=== PATIENT | female | born 1960 | race Two or more races ===

== ENCOUNTER 2019-04-16 19:44 | Emergency (ER) | payer OTHER ==
[~2019-04-16] VITALS: Ht 165.1 cm; Wt 81.6 kg
--- NOTE | 2019-04-16 20:02 | NUR ---
ED Nurse Note: pt presents to ED c/o productive cough and SOB x 2 weeks. pt states that she took amoxicillin she found at home, ASA and robitussin without relief of symptoms. pt also c/o LOERA and L ear px that started 2 days ago. pt denies getting a flu shot this year. she also has back and chest px that is exacerbated by coughing
[2019-04-16 20:04] VITALS: BP 148/68
--- NOTE | 2019-04-16 20:43 | Diagnostic Imaging Report ---
EXAM: XR Chest, 1 View CLINICAL HISTORY: PAIN TECHNIQUE: Frontal view of the chest. COMPARISON: No relevant prior studies available. FINDINGS: Lungs: Unremarkable. No consolidation. Pleural space: No pleural effusion. No pneumothorax. Heart: Unremarkable. No cardiomegaly. IMPRESSION: No acute cardiopulmonary abnormality.
[2019-04-16] MEDS ORDERED: Albuterol ud Inhalation HHN ONE (20:45)
--- NOTE | 2019-04-16 20:55 | NUR ---
ED Nurse Note: pt receiving breathing treatment
[2019-04-16] MEDS ORDERED: Oxymetazoline 0.05% Na Spray 30ml NASAL ONE (21:00)
--- NOTE | 2019-04-16 21:05 | Emergency Room Report ---
History of Present Illness General Chief Complaint: Flu Like Symptoms Present Illness HPI 58 YO female presents to the ED c/o productive cough, sneezing, nasal congestion and frontal sinus LOERA x 2 weeks. Pt. has been taking Robitussin with no relief. Pt. is a current smoker with a hx of asthma in the past. She denies using an inhaler and states she has an old one somewhere. She denies fevers or chills. She reports she did not receive this years flu vaccination. She reports hx of environmental allergies and takes Zyrtec intermittently PRN. Denies sudden onset of her LOERA. She denies neck pain or stiffness. She reports left sided ear pain and sensation of something being in her ear and has been using q- tips with no relief. She reports puffy watery eyes. She reports having wheezing for several days. She also reports persistent coughing and pain throughout the chest area during episodes of coughing. Denies ST. She denies palpitations or dizziness. She reports pmhx of HTN. Pt. denies cardiac hx or hx of immune compromise. Pt. and pt. daughter demonstrate concern for AK as pt. just had one, and pt,'s father passed from [place]. Pt. aslo c/o low back pain and frequent UTI's. (Fannie Garces) Allergies: Coded Allergies: Dust (Verified Allergy, Unknown, 04/16/19) Uncoded Allergies: CATS (Allergy, Unknown, 04/16/19) Patient History Past Medical History: see triage record Past Surgical History: none Social History: Reports: smoking Last Menstrual Period: na Now: No Reviewed Nursing Documentation: PMH: Agreed; PSxH: Agreed (Fannie Garces) Nursing Documentation-PMH Hx Hypertension: Yes (Fannie Garces) Review of Systems All Other Systems: negative except mentioned in HPI (Fannie Garces) Physical Exam Vital Signs Date Time Temp Pulse Resp B/P (MAP) Pulse Ox O2 Delivery O2 Flow Rate FiO2 04/16/19 19:51 99.3 100 18 148/68 (94) 94 Room Air 04/16/19 20:56 21 Sp02 EP Interpretation: reviewed, normal General Appearance: no apparent distress, alert, GCS 15, non-toxic Head: normocephalic, atraumatic, other - ttp to the frontal sinus area Eyes: bilateral eye normal inspection, bilateral eye PERRL, bilateral eye other - no photophobia ENT: hearing grossly normal, normal pharynx, normal voice, TMs + canals normal , uvula midline, moist mucus membranes, nasal congestion - clear rhinorrhea bilaterally. patent nares Neck: full range of motion, no meningismus Respiratory: lungs clear, no respiratory distress, no accessory muscle use, speaking full sentences, wheezing - scant diffuse wheezes. Cardiovascular #1: regular rate, rhythm, no edema Musculoskeletal: normal range of motion, gait/station normal, non-tender Neurologic: alert, motor strength/tone normal, oriented x3, sensory intact, responsive, speech normal Psychiatric: judgement/insight normal, anxious - tachypneic intermittently Skin: normal color Lymphatic: no adenopathy (Fannie Garces) Medical Decision Making PA Attestation Dr. Vásquez is my supervising Physician whom patient management has been discussed with. (Fannie Garces) Diagnostic Impression: Primary Impression: Acute viral syndrome Additional Impressions: Bronchitis Sinus headache ER Course 58 YO female presents to the ED c/o productive cough, sneezing, nasal congestion and frontal sinus LOERA x 2 weeks. Pt. has been taking Robitussin with no relief. Pt. is a current smoker with a hx of asthma in the past. She denies using an inhaler and states she has an old one somewhere. She denies fevers or chills. She reports she did not receive this years flu vaccination. She reports hx of environmental allergies and takes Zyrtec intermittently PRN. Denies sudden onset of her LOERA. She denies neck pain or stiffness. She reports left sided ear pain and sensation of something being in her ear and has been using q- tips with no relief. She reports puffy watery eyes. She reports having wheezing for several days. She also reports persistent coughing and pain throughout the chest area during episodes of coughing. Denies ST. She denies palpitations or dizziness. She reports pmhx of HTN. Pt. denies cardiac hx or hx of immune compromise. Pt. and pt. daughter demonstrate concern for AK as pt. just had one, and pt,'s father passed from [place]. Pt. aslo c/o low back pain and frequent UTI's. Ddx considered but are not limited to URI, pneumonia, PE, strep pharyngitis, meningitis, Bronchitis, [place], CHF, sinusitis, allergic rhinitis just to name a few.. Vital signs: Pt.is afebrile pt. tachypneic, O2 Sat 94%. HR 100 H&PE are most consistent with ORDERS: pt. had little improvement on respiratory effort s/p nebulized albuterol, further work up was initiated to include cardiac and r/o PE. - CBC: WNL -CMP: WNL -Troponin: 0.00 - CK: WNL - D-Dimer: -Influenza: Negative -EKG: NSR 94 ED INTERVENTIONS: -Albuterol Nebulized Tx -Tylenol PO -Afrin Nasal -Ativan 1mg PO DISCHARGE: At this time pt. is stable for d/c to home. Will provide printed patient care instructions, and any necessary prescriptions. Care plan and follow up instructions have been discussed with the patient prior to discharge. (Fannie Garces) ER Course Patient signed out to me. She presents with cough and shortness of breath. Labs unremarkable. EKG normal. X-ray normal. Troponin 0 and d-dimer negative. I see no evidence of ACS, PE, dissection to name a few. She appeared to be anxious and responded well with Ativan. Discharged home. (Chapo James MD) EKG Diagnostic Results EP Interpretation: Dr. James Rate: normal - 94 bpm Rhythm: NSR ST Segments: no acute changes ASA given to the pt in ED: No PA Scribe Text This Interpretation was scribed by PRAVEEN Garces. (Fannie Garces) Chest X-Ray Diagnostic Results Chest X-Ray Diagnostic Results : Chest X-Ray Ordered: Yes # of Views/Limited/Complete: 1 View Indication: Shortness of Breath EP Interpretation: Yes PA Xray: Interpretation reviewed, by supervising MD, and agrees with findings. Interpretation: no consolidation, no effusion, no pneumothorax, no acute cardiopulmonary disease Impression: No acute disease Electronically Signed by: Fannie Garces PA-C (Fannie Garces) Last Vital Signs Date Time Temp Pulse Resp B/P (MAP) Pulse Ox O2 Delivery O2 Flow Rate FiO2 04/16/19 20:56 88 18 99 Room Air 21 86 18 95 04/16/19 20:04 99.3 148/68 (Fannie Garces) Status: improved (Chapo James MD) Disposition: HOME, SELF-CARE Condition: Stable Signed Out To: Dr. James (Fannie Garces) Scripts Prednisone* (PREDNISONE*) 20 Mg Tablet 40 MG ORAL DAILY, #10 TAB Prov: Chapo James MD 04/17/19 Albuterol Sulfate* (ALBUTEROL SULFATE MDI*) 8.5 Gm Hfa.aer.ad 2 PUFF INH Q4H PRN for cough/wheezing, #1 EA 0 Refills Prov: Chapo James MD 04/17/19 Additional Instructions: Follow-up with your doctor in 7 days. Return if symptoms worsen. Fannie Garces Apr 16, 2019 21:05 Chapo James MD Apr 17, 2019 00:37
--- NOTE | 2019-04-16 21:40 | NUR ---
ED Nurse Note: patient moved to monitored bed, trauma per request of PRAVEEN Xie
[2019-04-16 21:59] VITALS: BP 122/56
[2019-04-16 22:08] LABS: BASOPHILS % (AUTO) 1.5 % (0.0-2.0); HEMATOCRIT 41.5 % (37.0-47.0); HEMOGLOBIN 13.5 G/DL (12.0-16.0); LYMPHOCYTES % (AUTO) 31.8 % (20.0-45.0); MEAN CORPUSCULAR VOLUME 92 FL (80-99); MONOCYTES % (AUTO) 8.2 % (1.0-10.0); NEUTROPHILS % (AUTO) 57.5 % (45.0-75.0); PLATELET COUNT 264 K/UL (150-450); RED BLOOD COUNT 4.53 M/UL (4.20-5.40); RED CELL DISTRIBUTION WIDTH 12.2 % (11.6-14.8); WHITE BLOOD COUNT 7.2 K/UL (4.8-10.8)
[2019-04-16 22:20] LABS: ANION GAP 14 mmol/L (5-15); BLOOD UREA NITROGEN 19 mg/dL (7-18); CALCIUM 9.5 MG/DL (8.5-10.1); CARBON DIOXIDE 23 MMOL/L (21-32); CHLORIDE 102 MMOL/L (98-107); CREATININE 0.9 MG/DL (0.55-1.30); POTASSIUM 3.5 MMOL/L (3.5-5.1); SODIUM 139 MMOL/L (136-145)
[2019-04-16 22:24] LABS: ALANINE AMINOTRANSFERASE 34 U/L (12-78); ALBUMIN 3.9 G/DL (3.4-5.0); ALKALINE PHOSPHATASE 108 U/L (46-116); ASPARTATE AMINO TRANSFERASE 24 U/L (15-37); BILIRUBIN,TOTAL 0.4 MG/DL (0.2-1.0); CREATINE KINASE 147 U/L (26-308)
[2019-04-16] MEDS ORDERED: LORazepam 1mg tab ORAL ONE (22:45)
[2019-04-16 22:54] LABS: APPEARANCE,URINE CLEAR; BILIRUBIN, URINE NEGATIVE (NEGATIVE); COLOR,URINE PALE YELLOW; GLUCOSE, URINE (UA) NEGATIVE (NEGATIVE); KETONES,URINE NEGATIVE (NEGATIVE); LEUKOCYTE ESTERASE ,URINE NEGATIVE (NEGATIVE); NITRITE,URINE NEGATIVE (NEGATIVE); PH,URINE 7 (4.5-8.0); PROTEIN,URINE NEGATIVE (NEGATIVE); UROBILINOGEN,URINE NORMAL MG/DL (0.0-1.0)
[2019-04-17] MEDS ORDERED: PREDNISONE20 MG ORAL (00:36)
[2019-04-17] MEDS ORDERED: ALBUTEROL SULF8.5 GM INH (00:36)
[2019-04-17 00:40] VITALS: BP 122/56
--- NOTE | 2019-04-17 00:40 | NUR ---
ED Nurse Note: Pt cleared by health care Provider for discharge. DC instructions/prescription was given and explained to pt and daughter. Both verbalized understanding of teachings. All medical deviecs such as ID band and IV line removed. Pt is AAO x4, ambulatory and left with all personal belongings.
== END 2019-04-17 00:40 | disposition home or self-care (01) ==
LOC: EMR 20:32
DX: B34.9 Viral infection, unspecified (principal); J20.9 Acute bronchitis, unspecified; R51 Headache; I10 Essential (primary) hypertension
CPT/HCPCS: 36415; 71045; 80053; 81003; 82550; 84484; 85025; 85379; 86710; 93005; Z7502; 99284